=== PATIENT | male | born 1955 | race Caucasian/White ===

== ENCOUNTER 2019-11-02 08:58 | Outpatient (CLI) | payer MEDICARE, OTHER, SELFPAY ==
--- NOTE | 2019-11-02 09:16 | XR_ITS ---
WS: [id number] LEFT HIP HISTORY: BONE TUMOR COMPARISON: CT pelvis 09/03/2013 LEFT hip: No acute fracture or dislocation. No significant narrowing of the hip joint. Patient has a known long-term stability lytic area in the LEFT ilium and ischium. Stable lucency in the LEFT femora l neck. No soft tissue abnormality. XR/XR hip LT 2-3V wo/w pel* [id number] IMPRESSION: 1. No hip fracture. 2. Known benign lytic lesion in the LEFT ilium.
== END 2019-11-02 08:59 | disposition home or self-care (01) ==
PROVIDERS: Family Provider Electrodiagnostic Medicine; PCP Electrodiagnostic Medicine; Visit Provider Electrodiagnostic Medicine
DX: D49.2 Neoplasm of unspecified behavior of bone, soft tissue, and skin (principal)
CPT/HCPCS: 73502

== ENCOUNTER → 2020-07-17 09:07 | Outpatient (BNVA) | payer MEDICARE, OTHER, SELFPAY | PROVIDERS: Family Provider Electrodiagnostic Medicine; PCP Electrodiagnostic Medicine; Visit Provider Urology | DX: N41.1 Chronic prostatitis (principal); N40.1 Benign prostatic hyperplasia with lower urinary tract symptoms; N20.9 Urinary calculus, unspecified | CPT/HCPCS: 81003; 84153 ==

== ENCOUNTER → 2021-06-22 16:15 | Outpatient (BNVA) | payer MEDICARE, OTHER, SELFPAY | PROVIDERS: Family Provider Electrodiagnostic Medicine; PCP Electrodiagnostic Medicine; Visit Provider Family Medicine | DX: R05.9 Cough, unspecified (principal) | CPT/HCPCS: 87400; 87635 ==

== ENCOUNTER 2021-06-26 07:24 | Outpatient (CLI) | payer MEDICARE, OTHER, SELFPAY ==
[2021-06-26 07:58] VITALS: BP 165/84; PULSE 85; RESP 17; TEMP 36.8; O2SAT 95; BMI 29.5
[2021-06-26 08:53] VITALS: BP 139/77; PULSE 79; RESP 17; TEMP 36.8; O2SAT 95
[2021-06-26 09:47] VITALS: BP 137/76; PULSE 68; RESP 17; TEMP 36.8; O2SAT 94
[2021-06-26 09:53] VITALS: BP 165/84; PULSE 68; RESP 17; TEMP 36.8; O2SAT 93
== END 2021-06-26 07:25 | disposition home or self-care (01) ==
LOC: OPS 07:26
PROVIDERS: PCP Electrodiagnostic Medicine; Visit Provider Family Medicine
DX: U07.1 COVID-19 (principal)
CPT/HCPCS: 96365

== ENCOUNTER 2022-07-11 12:46 | Outpatient (CLI) | payer MEDICARE, OTHER, SELFPAY ==
[2022-07-11 14:09] LABS: Prostate Specific AG Urology 2.04 ng/mL (0-4)
== END 2022-07-11 12:47 | disposition home or self-care (01) ==
LOC: LAB 12:51
PROVIDERS: PCP Electrodiagnostic Medicine; Visit Provider Urology
DX: N40.1 Benign prostatic hyperplasia with lower urinary tract symptoms (principal)
CPT/HCPCS: 84153

== ENCOUNTER → 2022-07-16 09:41 | Outpatient (BNVA) | payer MEDICARE, OTHER, SELFPAY | PROVIDERS: PCP Electrodiagnostic Medicine; Visit Provider Urology | DX: N40.1 Benign prostatic hyperplasia with lower urinary tract symptoms (principal); N13.8 Other obstructive and reflux uropathy; N41.1 Chronic prostatitis; N20.9 Urinary calculus, unspecified; Z12.5 Encounter for screening for malignant neoplasm of prostate | CPT/HCPCS: 51798; 81003; 99213 ==

== ENCOUNTER 2025-01-21 06:35 | Emergency (ER) | payer MEDICARE, OTHER, SELFPAY ==
[2025-01-21 06:37] VITALS: BP 209/103; PULSE 67; RESP 20; TEMP 36.5; O2SAT 93; BMI 29.5
--- NOTE | 2025-01-21 06:53 | CT_ITS ---
WS: [id number] CT ABDOMEN AND PELVIS NONCONTRAST HISTORY: flank pain, RIGHT TECHNIQUE: Imaging performed through the abdomen and pelvis. Coronal and sagittal reformats are submitted. All CT scans at [facility] use at least one of these dose optimization techniques: automated exposure control; mA and/or kV adjustment per patient size (includes targeted exams where dose is matched to clinical indication); or iterative reconstruction. DLP: 950.42 mGy.cm COMPARISON: 01/20/2012 and 09/03/2013 Lower thorax: Lung bases are clear. Visualized heart is normal. Small hiatal hernia. Liver: Normal size liver. No mass or bile duct dilatation. Gallbladder: Normally distended gallbladder with numerous stones. Largest stone measures 2.1 cm in diameter. No adjacent inflammation. Pancreas: Normal size and attenuation. Normal pancreatic duct. No pancreatitis or mass. Spleen: Normal. Adrenal glands: Normal. No mass. Right kidney: Mild perinephric stranding. Very minimal dilatation of the RIGHT renal pelvis and proximal ureter. 3 mm calcification in the mid ureter at the level of L4. Distal ureter is normal caliber. Left kidney: Mild perinephric stranding. No hydronephrosis. There is a 5 mm calcification closely associated with the distal LEFT ureter. There is no ureteral obstruction. Cannot determine the exact location of this calcification but it is not causing a ureteral obstruction. Aorta: Mild atherosclerosis abdominal aorta with no aneurysm. No free fluid, intraperitoneal air or significant lymphadenopathy. GI tract: Normal noncontrast imaging of the stomach, small bowel and colon. No obstruction or wall thickening. Normal appendix. Abdominal wall: Negative. No hernia. Pelvis: Urinary bladder is not distended. Prostate gland is enlarged encroaching upon the posterior bladder. Osseous structures: Osteopenia. Mild lumbar spondylosis. Mixed lytic and sclerotic lesion in the LEFT ilium similar to the prior study from 2013. This has been previously described and biopsy has been performed. CT/CT kidney stone [id number] IMPRESSION: 1. Very mild RIGHT hydroureteronephrosis secondary to a 3 mm ureteral calcific ation at the level of L4. 2. Mild bilateral perinephric stranding. 3. 5 mm calcification inseparable from the distal LEFT ureter. There is no ure teral dilatation or renal obstruction. Cannot separate this calcification from the ureter. This calcification was not present on the study from 2013. Cannot e xclude nonobstructing distal LEFT ureteral calcification. 4. Cholelithiasis. Numerous stones in the gallbladder with the largest measuri ng 2.1 cm in diameter. 5. Stable, previously biopsied mixed lytic and sclerotic lesion in the LEFT il ium. Stable since at least 2013.
[2025-01-21 06:54] VITALS: PULSE 60; O2SAT 97
[2025-01-21 07:04] LABS: Hematocrit 44.4 % (37-53); Hemoglobin 15.50 g/dL (11.27-16.99); Mean Corpuscular HGB Conc 34.9 g/dL (30-55); Mean Corpuscular Hemoglobin 32.2 pg (27-33); Mean Corpuscular Volume 92.3 fl (82-101); Nucleated Red Blood Cells % 0 %; Platelet Count 162 10^3/cmm (157-399); Red Blood Count 4.81 10^6/uL (3.85-5.65); White Blood Count 5.60 10^3/uL (3.29-11.43)
[2025-01-21] MEDS: ondansetron 2 mg/ML SDV 2 mL 4 MG IVP (07:05)
--- NOTE | 2025-01-21 07:05 | ECG_ITS ---
[facility] Test Date: 2025-01-21 Pat Name: Mikael William Department: Room: Gender: Male Public Records Officer: : 1955 Requested By: Guero Garcia Order Number: [id number] Reading MD: Measurements Intervals [place] Rate: 52 P: 62 SD: 176 QRS: 20 QRSD: 88 T: 39 QT: 415 QTc: 387 Interpretive Statements SINUS BRADYCARDIA [email or web address]
--- NOTE | 2025-01-21 07:05 | W.ED.MALEGU ---
HPI - Male Genitourinary General: Chief complaint: Urogenital-Male Stated complaint: pain kidney area Time Seen by Provider: 01/21/25 06:52 History of Present Illness: 69-year-old male presents emergency room with right flank pain that began at 5 AM today. He has had kidney stones in the past says this feels similar to what he had in the past with kidney stones. Has not noticed any hematuria he has been very nauseous no diarrhea no fever sweats or chills Associated symptoms: Deny dysuria Related Data Home Medications ?Medication ?Instructions ?Recorded ?Confirmed nifedipine 20 mg capsule 60 mg PO BID 07/17/20 07/16/22 metoprolol tartrate 25 mg tablet 25 mg PO DAILY 07/16/22 07/16/22 Previous Rx's ?Medication ?Instructions ?Recorded albuterol sulfate 90 mcg/actuation 1 inh inhalation QID PRN shortness 06/22/21 aerosol inhaler of breath or wheezing #8.5 grams ondansetron HCl 4 mg tablet 4 mg PO Q12H PRN nausea and 06/22/21 (Zofran) vomiting 7 days #14 tabs prednisone 20 mg tablet 20 mg PO DAILY 5 days #5 tabs 06/22/21 ciprofloxacin HCl 500 mg tablet See Rx Instructions .Route 10/02/22 .COMPLEX #60 tabs tamsulosin 0.4 mg capsule See Rx Instructions .Route 11/12/22 .COMPLEX #60 caps hydrocodone 5 mg-acetaminophen 325 1 tab PO Q6H PRN pain #15 tabs 01/21/25 mg tablet promethazine 25 mg tablet 25 mg PO Q6H PRN nausea and 01/21/25 vomiting #20 tabs Allergies Allergy/AdvReac Type Severity Reaction Status Date / Time No Known Allergies Allergy Unverified 07/16/22 09:50 Review of Systems Const: Denies: fever(s) or chills Card: Denies: chest pain Resp: Denies: dyspnea GI: Denies: abdominal pain : Reports: flank pain; Denies: dysuria, urinary frequency or urinary urgency Musc: Denies: neck pain or back pain Skin/Breast: Denies: rash PFSH ED PFSH: Medical History Rosacea H/O fracture of ankle Hypertension Chronic prostatitis Urolithiasis BPH loc w urin obs/LUTS Surgical History H/O hernia repair H/O knee surgery Family History Mother , AT AGE 84 Dementia Father , AT AGE 86 CAD (coronary artery disease) [place] Social History Smoking and tobacco/nicotine status: former use of tobacco/nicotine Alcohol intake: never Substance/Drug Use: never Marital status: Current occupational status: retired Physical Exam Const: COMMON NORMALS: no acute distress GENERAL APPEARANCE: cooperative and comfortable ORIENTATION/CONSCIOUSNESS: Yes awake, Yes oriented to person, Yes oriented to place and Yes oriented to time HENMT: COMMON NORMALS: normocephalic, atraumatic and hearing grossly normal bilaterally HEAD & SCALP: normocephalic and atraumatic Resp: COMMON NORMALS: normal respiratory effort, No retractions, No use of accessory muscles and clear to auscultation bilaterally AUSCULTATION: clear to auscultation bilaterally Cardio: COMMON NORMALS: regular rate, regular rhythm and No murmurs present (Cardio) RATE: regular rate RHYTHM: regular rhythm GI: COMMON NORMALS: Soft to palpation and No hepatosplenomegaly present AUSCULTATION: Yes normoactive bowel sounds PALPATION: Yes Soft to palpation, No Tenderness to palpation present (GI), No Guarding due to palpation present (GI) and Yes No hepatosplenomegaly present Extremity: COMMON NORMALS: normal to inspection, capillary refill normal, no clubbing, cyanosis or edema, no calf tenderness and no pedal edema Neuro: SENSORIUM/ORIENTATION: Yes oriented to person, Yes oriented to place and Yes oriented to time Skin: COMMON NORMALS: no rashes or lesions noted GENERAL SKIN EXAM: no rashes or lesions noted Course Vital Signs: Vital signs: Vital Signs Temperature 97.7 F 01/21/25 06:37 Pulse Rate 63 01/21/25 08:06 Respiratory Rate 12 01/21/25 08:06 Blood Pressure 160/84 01/21/25 08:06 Pulse Oximetry 97 01/21/25 08:06 Oxygen Delivery Me thod Room Air 01/21/25 06:54 MDM - Male Medical Decision Making Left distal ureterolithiasis. To the distal third. Hydrocodone for pain promethazine strain urine he is already on tamsulosin Follow-up with urology return if pain is not controlled. No signs of infection no indication for antibiotics at this time. Medical Records I reviewed the patient's medical records. Lab Data I reviewed the patient's lab results. 01/21/25 06:44 01/21/25 06:44 Radiology Impressions Abdomen/Pelvis CT 01/21/25 06:53 IMPRESSION: 1. Very mild RIGHT hydroureteronephrosis secondary to a 3 mm ureteral calcification at the level of L4. 2. Mild bilateral perinephric stranding. 3. 5 mm calcification inseparable from the distal LEFT ureter. There is no ureteral dilatation or renal obstruction. Cannot separate this calcification from the ureter. This calcification was not present on the study from 2013. Cannot exclude nonobstructing distal LEFT ureteral calcification. 4. Cholelithiasis. Numerous stones in the gallbladder with the largest measuring 2.1 cm in diameter. 5. Stable, previously biopsied mixed lytic and sclerotic lesion in the LEFT ilium. Stable since at least 2013. Laboratory Results WBC 5.60 10^3/uL (3.29-11.43) 01/21/25 06:44 RBC 4.81 10^6/uL (3.85-5.65) 01/21/25 06:44 Hgb 15.50 g/dL (11.27-16.99) 01/21/25 06:44 Hct 44.4 % (37-53) 01/21/25 06:44 MCV 92.3 fl (82-101) 01/21/25 06:44 MCH 32.2 pg (27-33) 01/21/25 06:44 MCHC 34.9 g/dL (30-55) 01/21/25 06:44 RDW 13.2 % (12.1-15.1) 01/21/25 06:44 Plt Count 162 10^3/cmm (157-399) 01/21/25 06:44 MPV 9.1 fL (7.4-10.4) 01/21/25 06:44 Neut % (Auto) 40.2 % 01/21/25 06:44 Lymph % (Auto) 42.9 % 01/21/25 06:44 [place] % (Auto) 12.0 % 01/21/25 06:44 Eos % (Auto) 4.3 % 01/21/25 06:44 Baso % (Auto) 0.4 % 01/21/25 06:44 Neut # (Auto) 2.26 10^3/uL (1.8-7.7) 01/21/25 06:44 Lymph # (Auto) 2.4 10^3/uL (0.8-4.8) 01/21/25 06:44 [place] # (Auto) 0.7 10^3/uL (0.2-0.9) 01/21/25 06:44 Eos # (Auto) 0.2 10^3/uL (0.0-0.8) 01/21/25 06:44 Baso # (Auto) 0.0 10^3/uL (0.0-0.1) 01/21/25 06:44 Nucleated RBC % (auto) 0 % 01/21/25 06:44 Nucleated RBCs # 0.0 /100WBC 01/21/25 06:44 Sodium 139 mmol/L (136-145) 01/21/25 06:44 Potassium 4.1 mmol/L (3.5-5.1) 01/21/25 06:44 Chloride 100 mmol/L (98-107) 01/21/25 06:44 Carbon Dioxide 28 mmol/L (22-29) 01/21/25 06:44 Anion Gap 15.1 (5-19) 01/21/25 06:44 BUN 13 mg/dL (8-23) 01/21/25 06:44 Creatinine 1.2 mg/dL (0.7-1.2) 01/21/25 06:44 GFR Calculation Not Reportable 01/21/25 06:44 Glucose 139 mg/dL (65-115) H 01/21/25 06:44 Calculated Osmolality 290 mOsm/kg (285-295) 01/21/25 06:44 Calcium 9.3 mg/dL (8.5-10.5) 01/21/25 06:44 Total Bilirubin 1.1 mg/dL (0.15-1.2) 01/21/25 06:44 AST 24 U/L (0-40) 01/21/25 06:44 ALT 15 U/L (0-41) 01/21/25 06:44 Alkaline Phosphatase 86 U/L (40-130) 01/21/25 06:44 Total Protein 6.8 g/dL (6.6-8.7) 01/21/25 06:44 Albumin 4.5 g/dL (3.5-5.2) 01/21/25 06:44 Globulin 2.3 g/dL (1.3-4.6) 01/21/25 06:44 Urine Color [place] (Yellow) A 01/21/25 06:52 Urine Appearance Cloudy (CLEAR) A 01/21/25 06:52 Urine pH 5.5 (5-7) 01/21/25 06:52 Ur Specific [place] 1.022 (1.005-1.030) 01/21/25 06:52 Urine Protein 1+ (Negative) A 01/21/25 06:52 Urine Glucose (UA) Negative (Normal) 01/21/25 06:52 Urine Ketones Trace (Negative) 01/21/25 06:52 Urine Blood 3+ (Negative) A 01/21/25 06:52 Urine Nitrate Negative (Negative) 01/21/25 06:52 Urine Bilirubin Negative (Negative) 01/21/25 06:52 Urine Urobilinogen 1.0 mg/dL (Negative) 01/21/25 06:52 Ur Leukocyte Esterase Negative (Negative) 01/21/25 06:52 Urine RBC >100 /hpf (0-2) H 01/21/25 06:52 Urine WBC 0-5 /hpf (0-5) 01/21/25 06:52 Ur Squamous Epith Cells 0-5 /hpf (0-5) 01/21/25 06:52 Amorphous Sediment Not Reportable 01/21/25 06:52 Urine Bacteria None seen /hpf (NONE) 01/21/25 06:52 Hyaline Casts 0.81 /lpf 01/21/25 06:52 All radiology interpretation(s) finalized by discharge Discharge Plan Discharge Patient Disposition: Home Clinical Impression: Right nephrolithiasis Condition: Stable Prescriptions: New hydrocodone-acetaminophen 5-325 mg tablet 1 tab PO Q6H PRN (Reason: pain) Qty: 15 0RF promethazine 25 mg tablet 25 mg PO Q6H PRN (Reason: nausea and vomiting) Qty: 20 0RF No Action nifedipine 20 mg capsule 60 mg PO BID metoprolol tartrate 25 mg tablet 25 mg PO DAILY prednisone 20 mg tablet 20 mg PO DAILY 5 Days Qty: 5 0RF ondansetron HCl [Zofran] 4 mg tablet 4 mg PO Q12H PRN (Reason: nausea and vomiting) 7 Days Qty: 14 0RF albuterol sulfate 90 mcg/actuation HFA aerosol inhaler 1 inh inhalation QID PRN (Reason: shortness of breath or wheezing) Qty: 8.5 0RF ciprofloxacin HCl 500 mg tablet See Rx Instructions .ROUTE .COMPLEX Qty: 60 6RF Dose Instruction: Take 1 tablet by mouth twice daily Rx Instructions: Take 1 tablet by mouth twice daily tamsulosin 0.4 mg capsule See Rx Instructions .ROUTE .COMPLEX Qty: 60 12RF Dose Instruction: Take 1 capsule by mouth twice daily Rx Instructions: Take 1 capsule by mouth twice daily Discharge Orders: Discharge ED (Routine); Ordered 01/21/25 Ordered By: Guero Dalton Referrals: Jin Cramer DO [Primary Care Provider, Family Practice] Discharge Diet: Usual diet Discharge Activity: Increase activity as tolerated Patient Instructions: Kidney Stones (ED), How to Strain Your Urine (ED), Opioid Safety, Pain Management, Patient Portal & Ольга Instructions Activity Restrictions/Additional Instructions: Thank you for choosing [facility] for your healthcare needs today. It is very important that you follow up as instructed or that you return to the Emergency Department should you have concerns or if your condition changes or worsens in any way. You were seen in the emergency room with right flank pain CT shows you have a 4 mm stone in the distal portion of the ureter. This likely will pass on its own you should strain your urine to catch stone. Recommend increasing the tamsulosin to 1 tablet twice a day. You are also given Print Language: Albanian Coding Level of Care Code ED Resident Inspector for eLo Martinez
[2025-01-21 07:13] VITALS: BP 170/92; PULSE 56; RESP 15; O2SAT 96
[2025-01-21 07:13] LABS: Alanine Aminotransferase 15 U/L (0-41); Albumin Level 4.5 g/dL (3.5-5.2); Alkaline Phosphatase 86 U/L (40-130); Anion Gap 15.1 (5-19); Aspartate Amino Transferase 24 U/L (0-40); Blood Urea Nitrogen 13 mg/dL (8-23); Calcium 9.3 mg/dL (8.5-10.5); Carbon Dioxide 28 mmol/L (22-29); Chloride 100 mmol/L (98-107); Creatinine Clr Calc Pharmacy 72.7139; Globulin 2.3 g/dL (1.3-4.6); Glucose 139 mg/dL (65-115); Osmolality Calculated 290 mOsm/kg (285-295); Potassium 4.1 mmol/L (3.5-5.1); Sodium 139 mmol/L (136-145); Total Protein 6.8 g/dL (6.6-8.7)
[2025-01-21 07:22] LABS: Glucose Urine UA Negative (Normal); Nitrate Urine Negative (Negative); Specific Gravity, Urine 1.022 (1.005-1.030)
[2025-01-21 07:24] LABS: Add Urine Microscopic? YES
[2025-01-21] MEDS: HYDROmorphone 0.5 MG/0.5 ML INJ IVP ×2 (07:49→08:18)
[2025-01-21 08:06] VITALS: BP 160/84; PULSE 63; RESP 12; O2SAT 97
--- NOTE | 2025-01-25 09:17 | PC.SOCIAL ---
Urology Referral Spoke with patient's , and she requested [facility]. Faxed [facility] at this time.
== END 2025-01-21 08:24 | disposition home or self-care (01) ==
PROVIDERS: Emergency Provider Family Medicine; PCP Electrodiagnostic Medicine
DX: N20.0 Calculus of kidney (principal); Z87.891 Personal history of nicotine dependence; I10 Essential (primary) hypertension
CPT/HCPCS: 74176; 80053; 81001; 85025; 87086; 93005; 96374; 96375; 99285; J1171; J1885; J2405

== ENCOUNTER 2025-02-09 14:49 | Outpatient (CLI) | payer MEDICARE, OTHER, SELFPAY ==
--- NOTE | 2025-02-09 14:54 | CT_ITS ---
WS: [id number] CT ABDOMEN PELVIS TECHNIQUE: Noncontrast CT of the abdomen and pelvis with coronal and sagittal reformatted images. CLINICAL INFORMATION: BILATERAL URETERAL CALCULI COMPARISON: 01/21/2025 DLP: 684.[address] scans at [facility] use at least one of these dose optimization techniques: automated exposure control; mA and/or kV adjustment per patient size (includes targeted exams where dose is matched to clinical indication); or iterative reconstruction. FINDINGS: Previously described RIGHT ureteral calculus measuring 3 mm at the L4 level is unchanged in position compared to previous. Pelvicaliectasis RIGHT kidney is improved. Persistent mild perinephric stranding. Inflammatory stranding about the RIGHT ureter appears improved. Distal RIGHT ureter is patent. No hydronephrosis in the LEFT kidney. Calculus abutting the distal LEFT ureter appears unchanged and appears more distinctly separate from the LEFT ureter today compatible with a small phlebolith. No other significant changes compared to previous. 5 mm noncalcified nodule RIGHT middle lobe. Subsegmental atelectasis in the lung bases. Cholelithiasis. Normal noncontrast liver and spleen. Normal noncontrast pancreas. Small esophageal hiatal hernia. Normal appendix. Small fat-containing umbilical he rnia. Enlarged prostate with evidence of bladder outlet obstruction. Prostate measures 5.4 cm. Stable previously biopsied mixed lytic and chronic lesion in the LEFT ilium CT/CT kidney stone [id number] IMPRESSION: 1. No change in the position of the 3 mm RIGHT mid ureteral calculus at the L4 level. Improved RIGHT pelvicaliectasis and ureteral stranding. 2. Previously described possible LEFT distal ureteral calculus appears more di stinctly separate from the ureter today likely a phlebolith. No evidence of LEF T ureteral obstruction. 3. Cholelithiasis. 4. Enlarged prostate with mild diffuse bladder wall thickening compatible with bladder outlet obstruction. Recommend correlation PSA. 5. 5 mm RIGHT middle lobe nodule. This can be followed up with chest CT.
== END 2025-02-09 14:50 | disposition home or self-care (01) ==
PROVIDERS: PCP Electrodiagnostic Medicine; Visit Provider Nurse Practitioner Family
DX: N20.1 Calculus of ureter (principal); R91.1 Solitary pulmonary nodule; J98.11 Atelectasis; K80.20 Calculus of gallbladder without cholecystitis without obstruction; K44.9 Diaphragmatic hernia without obstruction or gangrene; K42.9 Umbilical hernia without obstruction or gangrene; N40.0 Benign prostatic hyperplasia without lower urinary tract symptoms; N32.0 Bladder-neck obstruction
CPT/HCPCS: 74176

== ENCOUNTER 2025-03-11 11:55 | Outpatient (CLI) | payer MEDICARE, OTHER, SELFPAY ==
--- NOTE | 2025-03-11 12:03 | US_ITS ---
WS: [id number] RENAL ULTRASOUND HISTORY: NEPHROLITHIASIS COMPARISON: Noncontrast CT 02/09/2025 TECHNIQUE: 2-D and color Doppler imaging of the kidney submitted. Right kidney: 11.5 cm x 6.7 cm x 5.6 cm. Cortex: 1.2 cm Normal echogenicity with no hydronephrosis or mass. Left kidney: 11.4 cm x 5.4 cm x 7.0 cm. Cortex: 1.4 cm Normal echogenicity with no hydronephrosis or mass. Aorta: Normal. Urinary Bladder: Normal distention. Mild prostate heterogeneity. US/US renal BI* [id number] IMPRESSION: 1. Normal size kidneys with no hydronephrosis. 2. No renal calcifications identified. No calcifications noted on the CT of .
--- NOTE | 2025-03-11 12:03 | XRR_ITS ---
PROCEDURE INFORMATION: Exam: XR Abdomen Exam date and time: 03/11/2025 12:11 PM Age: 69 years old Clinical indication: Condition or disease; Kidney or ureter condition; Other: Nephrolithiasis; Additional info: Nephrolithiasis, PT having US too TECHNIQUE: Imaging protocol: Radiologic exam of the abdomen. Views: Frontal supine view of the abdomen. 1 View. COMPARISON: CT kidney stone [id number] 02/09/2025 3:21 PM FINDINGS: Gastrointestinal tract: Bowel gas pattern is nonobstructive. Vasculature: A small calcified phlebolith is again noted in the left pelvis. No other intra-abdominal calcifications. Bones/joints: Unchanged, previously biopsied lytic lesion involving the left iliac wing. XR/XR KUB [id number] IMPRESSION: 1. No intra-abdominal urinary calculi identified. 2. No acute disease in the abdomen.
== END 2025-03-11 11:56 | disposition home or self-care (01) ==
LOC: RAD 11:57
PROVIDERS: PCP Electrodiagnostic Medicine; Visit Provider Urology
DX: N20.0 Calculus of kidney (principal)
CPT/HCPCS: 74018; 76770